=== PATIENT | male | born 1980 | race Caucasian/White ===

== ENCOUNTER 2021-08-20 08:31 | Emergency (ER) | payer BC ==
[~2021-08-20] VITALS: Ht 175.3 cm; Wt 81.6 kg
[2021-08-20 08:31] VITALS: BP 139/91
[2021-08-20] MEDS ORDERED: VALA1TAB40 PO (08:48)
[2021-08-20] MEDS ORDERED: FEXO-8 PO (08:48)
== END 2021-08-20 09:01 | disposition home or self-care (01) ==
LOC: MED 08:31
DX: B02.9 Zoster without complications (principal); Z79.899 Other long term (current) drug therapy
CPT/HCPCS: 99283

== ENCOUNTER 2022-06-23 10:27 | Emergency (ER) | payer OTHER, BC ==
[~2022-06-23] VITALS: Ht 175.3 cm; Wt 81.6 kg
[~2022-06-23 10:27] MED LIST: FEXO-8 PO; VALA1TAB40 PO
[2022-06-23 10:48] VITALS: BP 120/80
[2022-06-23] MEDS ORDERED: KETOROLAC 30 MG/ML VIAL IM ONE (13:10)
[2022-06-23] MEDS ORDERED: IBUP-2213 PO (15:08)
[2022-06-23] MEDS ORDERED: CYCL-711 PO (15:08)
[2022-06-23] MEDS ORDERED: LID5T TP (15:08)
[2022-06-23 15:10] VITALS: BP 140/85
--- NOTE | 2022-06-23 15:19 | NUR ---
Patient discharged with v/s stable. Written and verbal after care instructions given and explained. Patient alert, oriented and verbalized understanding of instructions. Ambulatory with steady gait. All questions addressed prior to discharge. ID band removed. Patient advised to follow up with PMD. Rx of FLEXERIL, LIDODERM 5%, MOTRIN given. Patient educated on indication of medication including possible reaction and side effects. Opportunity to ask questions provided and answered.
== END 2022-06-23 15:19 | disposition home or self-care (01) ==
LOC: MED 10:27
DX: S16.1XXA Strain of muscle, fascia and tendon at neck level, initial encounter (principal); S39.012A Strain of muscle, fascia and tendon of lower back, initial encounter; S29.011A Strain of muscle and tendon of front wall of thorax, initial encounter; S80.02XA Contusion of left knee, initial encounter; R51.9 Headache, unspecified; Z79.899 Other long term (current) drug therapy; Z79.1 Long term (current) use of non-steroidal anti-inflammatories (NSAID); V89.2XXA Person injured in unspecified motor-vehicle accident, traffic, initial encounter; Y93.89 Activity, other specified; Y92.410 Unspecified street and highway as the place of occurrence of the external cause; Y99.8 Other external cause status
CPT/HCPCS: 71101; 72040; 72100; 73562; 96372; 99284; J1885